=== PATIENT | female | born 1985 | race Caucasian/White ===

== ENCOUNTER 2017-07-03 15:07 | Emergency (ER) | payer MEDICAID ==
[~2017-07-03] VITALS: Ht 5283.9 cm; Wt 62.7 kg
[~2017-07-03 15:07] MED LIST: CLON-529 PO; CYCL-394 PO; DICL50TA PO; DIPH-689 PO; FLUO20CA39 PO; HYDR-569 PO; LAMO200T2 PO; NORG1TAB42 PO; PANT40TA39 PO; TRAM50TA2 PO; ZIPR40CA14 PO; ZIPR80CA2 PO
[2017-07-03 15:46] LABS: CLARITY,URINE Cloudy (Clear); COLOR,URINE Yellow (Yellow); GLUCOSE, URINE Negative (Neg); KETONES,URINE Negative (Neg); LEUKOCYTE ESTERASE ,URINE Large (Neg); NITRITES, URINE Negative (Neg); OCCULT BLOOD,URINE Moderate (Neg); PH,URINE 6.5 (4.8-8.0); PROTEIN,URINE 30 mg/dl (Neg); UA COLLECTION TYPE CLN CATCH MIDSTREAM
[2017-07-03 15:47] LABS: URINE HCG NEGATIVE (NEG)
[2017-07-03 15:54] LABS: BACTERIA,URINE FEW /HPF (Neg); MUCUS STRANDS FEW /LPF (Neg); SQUAMOUS EPITHELIAL CELL,UR NONE SEEN /LPF (FEW); WBC,URINE TNTC /HPF (0-4)
[2017-07-03] MEDS ORDERED: BACDS PO (16:06)
[2017-07-03 16:14] VITALS: BP 120/74
== END 2017-07-03 16:16 | disposition home or self-care (01) ==
LOC: ER 15:07
DX: N39.0 Urinary tract infection, site not specified (principal); F31.9 Bipolar disorder, unspecified; F15.10 Other stimulant abuse, uncomplicated
CPT/HCPCS: 81001; 81025; 87077; 87088; 87186; 99284

== ENCOUNTER 2017-09-17 12:32 | Emergency (ER) | payer MEDICAID ==
[~2017-09-17] VITALS: Ht 162.6 cm; Wt 60.0 kg
[2017-09-17 13:21] VITALS: BP 135/76
[2017-09-17] MEDS ORDERED: LORazepam 1 MG tablet PO ONE (14:50)
[2017-09-17 14:56] LABS: URINE HCG NEGATIVE (NEG)
[2017-09-17 14:58] LABS: CLARITY,URINE SLIGHTLY CLOUDY (Clear); COLOR,URINE YELLOW (Yellow); GLUCOSE, URINE NEGATIVE (Neg); KETONES,URINE NEGATIVE (Neg); LEUKOCYTE ESTERASE ,URINE NEGATIVE (Neg); NITRITES, URINE NEGATIVE (Neg); OCCULT BLOOD,URINE NEGATIVE (Neg); PROTEIN,URINE NEGATIVE (Neg)
[2017-09-17 15:00] LABS: UA COLLECTION TYPE CLN CATCH MIDSTREAM
[2017-09-17 15:06] LABS: URINE AMPHETAMINE SCREEN POSITIVE (Neg); URINE BARBITUATE SCREEN NEGATIVE (Neg); URINE BENZODIAZEPINES SCREEN NEGATIVE (Neg); URINE CANNABINOID SCREEN POSITIVE (Neg); URINE COCAINE SCREEN NEGATIVE (Neg); URINE METHADONE SCREEN NEGATIVE (Neg); URINE OPIATE SCREEN NEGATIVE (Neg); URINE PHENCYCLIDINE SCREEN NEGATIVE (Neg)
[2017-09-17 15:07] LABS: MUCUS STRANDS MANY /LPF (Neg); SQUAMOUS EPITHELIAL CELL,UR MANY /LPF (FEW)
[2017-09-17 15:08] LABS: BACTERIA,URINE FEW /HPF (Neg); RBC,URINE 0-2 /HPF (0-2); TRANSITIONAL EPI CELLS,URINE FEW /HPF; WBC,URINE 0-4 /HPF (0-4)
== END 2017-09-17 14:56 | disposition left against medical advice (07) ==
LOC: ER 12:33
DX: F48.8 Other specified nonpsychotic mental disorders (principal); Z13.89 Encounter for screening for other disorder; F15.10 Other stimulant abuse, uncomplicated; G89.29 Other chronic pain; F31.9 Bipolar disorder, unspecified; F32.9 Major depressive disorder, single episode, unspecified; Z98.890 Other specified postprocedural states; Z79.899 Other long term (current) drug therapy
CPT/HCPCS: 80305; 81001; 81025; 99284

== ENCOUNTER 2020-03-29 14:12 | Emergency (ER) | payer MEDICAID ==
[~2020-03-29] VITALS: Ht 160 cm; Wt 45.9 kg
[~2020-03-29 14:12] MED LIST changes: +HYDR-4383 PO; -HYDR-569 PO
[2020-03-29 14:21] VITALS: BP 112/86
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
--- NOTE | 2020-03-29 15:48 | NUR ---
Second call, not in lobby
--- NOTE | 2020-03-29 15:53 | NUR ---
Third time not in lobby. No need to call pt. per provider.
== END 2020-03-29 15:54 | disposition left against medical advice (07) ==
LOC: ER 14:12
DX: T74.21XA Adult sexual abuse, confirmed, initial encounter (principal); Z53.21 Procedure and treatment not carried out due to patient leaving prior to being seen by health care provider

== ENCOUNTER 2021-04-18 15:30 | Emergency (ER) | payer MEDICAID ==
[~2021-04-18] VITALS: Ht 160 cm; Wt 65.9 kg
[~2021-04-18 15:30] MED LIST changes: -DICL50TA PO; +DICL50TA10 PO
[2021-04-18 16:38] VITALS: BP 108/68
[2021-04-18 17:07] LABS: URINE HCG NEGATIVE (NEG)
[2021-04-18 17:23] LABS: CLARITY,URINE CLEAR (Clear); COLOR,URINE YELLOW (Yellow); GLUCOSE, URINE NEGATIVE (Neg); KETONES,URINE NEGATIVE (Neg); LEUKOCYTE ESTERASE ,URINE NEGATIVE (Neg); NITRITES, URINE NEGATIVE (Neg); OCCULT BLOOD,URINE NEGATIVE (Neg); PROTEIN,URINE NEGATIVE (Neg); UA COLLECTION TYPE CLN CATCH MIDSTREAM; UROBILINOGEN,URINE 0.2 E.U/dL (0.2-1.0)
== END 2021-04-18 16:50 | disposition home or self-care (01) ==
LOC: ER 15:32
DX: F15.10 Other stimulant abuse, uncomplicated (principal); F31.9 Bipolar disorder, unspecified; F17.210 Nicotine dependence, cigarettes, uncomplicated; G89.29 Other chronic pain; M54.9 Dorsalgia, unspecified; Z79.899 Other long term (current) drug therapy
CPT/HCPCS: 81003; 81025; 99283

== ENCOUNTER 2022-06-10 09:35 | Emergency (ER) | payer MEDICAID ==
[~2022-06-10] VITALS: Ht 160 cm; Wt 68.0 kg
[2022-06-10 09:41] VITALS: BP 139/96
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
[2022-06-10] MEDS ORDERED: TRAM50TA2 PO (10:27)
== END 2022-06-10 11:47 | disposition home or self-care (01) ==
LOC: ER 09:35
DX: S52.092A Other fracture of upper end of left ulna, initial encounter for closed fracture (principal); G89.29 Other chronic pain; M54.9 Dorsalgia, unspecified; F31.9 Bipolar disorder, unspecified; F15.10 Other stimulant abuse, uncomplicated; Z79.899 Other long term (current) drug therapy; Z79.1 Long term (current) use of non-steroidal anti-inflammatories (NSAID); X58.XXXA Exposure to other specified factors, initial encounter; Y93.89 Activity, other specified; Y92.89 Other specified places as the place of occurrence of the external cause; Y99.8 Other external cause status
CPT/HCPCS: 29105; 29505; 73090; 99283; A4565; A6449